=== PATIENT | female | born 1935 | race Caucasian/White ===

== ENCOUNTER 2019-11-07 21:47 | Observation (INO) | payer OTHER ==
[2019-11-07 23:12] LABS: Absolute Lymphocytes (CBC) 0.6 K/uL (0.7-4.9); Basophils % 0.4 % (0-1.3); Hematocrit 28.3 % (36.0-45.0); Lymphocytes % 3.4 % (15.3-44.8); MPV 7.4 fL (7.6-11.3); Protime INR 1.91; RBC Red Blood Cell Count 3.53 M/uL (3.86-4.86)
[2019-11-07 23:23] LABS: ALT/SGPT 18 U/L (12-78); AST/SGOT 23 U/L (15-37); Albumin 2.8 g/dL (3.4-5.0); Alkaline Phosphatase 104 U/L (45-117); BUN Blood Urea Nitrogen 13 mg/dL (7-18); Bicarbonate 30 mmol/L (21-32); Bilirubin Direct < 0.1 mg/dL (0-0.2); Bilirubin Total 0.2 mg/dL (0.2-1.0); Glucose Level 121 mg/dL (74-106); Magnesium 1.9 mg/dL (1.8-2.4); NT PRO-BNP 2182 pg/mL (<450); Potassium 3.9 mmol/L (3.5-5.1); Sodium Level 137 mmol/L (136-145); Troponin (Emerg Dept Use Only) < 0.02 ng/mL (0.0-0.045)
[2019-11-07 23:47] LABS: Urine Blood 1+ (NEG); Urine Glucose NEGATIVE (NEG); Urine Protein NEGATIVE (NEG)
[2019-11-07 23:55] LABS: Blood Morphology Comment NOT SEEN (NOT SEEN); Platelet Estimate ADEQ
[2019-11-07 23:56] LABS: Urine Bacteria <20 /HPF (<20); Urine Culture Reflex Order NOT NEEDED
[2019-11-08] MEDS ORDERED: MORPHINE 2 MG/ML SYR IV PRN (00:22)
[2019-11-08] MEDS ORDERED: ONDANSETRON 4 MG/2 ML VIAL IV PRN (00:22)
[2019-11-08] MEDS ORDERED: LORAZEPAM 0.5 MG TABLET PO PRN (00:27)
[2019-11-08] MEDS ORDERED: MAGNESIUM SULFATE 1 gm IVPB 1 GM/100 ML BAG IV ONE (00:27)
[2019-11-08] MEDS ORDERED: Oxycodone HCl/Acetaminophen 1 TAB TAB PO PRN (00:27)
[2019-11-08] MEDS ORDERED: GUAIFENESIN/DM 5 ML UCUP PO PRN (00:27)
[2019-11-08] MEDS ORDERED: HYDRALAZINE HCL 20 MG/ML VIAL IV PRN (00:27)
[2019-11-08] MEDS ORDERED: D50W 25 GM/50 ML SYRINGE/VIAL IV PRN (00:28)
[2019-11-08] MEDS ORDERED: GLUCAGON 1 MG/VIAL IM PRN (00:28)
--- NOTE | 2019-11-08 00:29 | EDPHYS ---
Physician Documentation [facility] Name: Moon Bazzi Age: 84 yrs Sex: Female : 1935 Arrival Date: 11/07/2019 Time: 21:50 Bed 13 Private MD: ED Physician Omer Mcmanus HPI: 11/06 21:57 This 84 yrs old Female presents to ER via Wheelchair with complaints of Pain jmm With Urination, Slurred Speech. 21:57 The patient's problem is reported as altered mental status, dysphasia, slurred speech. jmm Onset: The symptoms/episode began/occurred acutely, 1.5 hour(s) ago. Duration: This was a single incident. Context: This is an 84 year old female with a history of pulmonary fibrosis that presents to the ED with complaints of increased urinary frequency with productive cough over the past 4 days. Patient was prescribed levaquin and prednisone and took one dose today. Daughter states the patient developed slurred speech 1.5 hours ago. Denies focal weakness. . Historical: - PMHx: 22:02 pulmonary fibrosis; Anxiety; Depression; ll1 - Immunization history:: Adult Immunizations unknown. - Social history:: Patient/guardian denies using street drugs, Smoking status: unknown. ROS: 21:57 Constitutional: Negative for fever, chills, and weight loss, Cardiovascular: Negative jmm for chest pain, palpitations, and edema. 21:57 Abdomen/GI: Negative for abdominal pain, nausea, vomiting, diarrhea, and constipation, Back: Negative for injury and pain. 21:57 Respiratory: Positive for cough. 21:57 : Positive for urinary frequency. 21:57 Neuro: Positive for speech changes. 21:57 All other systems are negative. Exam: 21:57 Radiologist reports: normal jmm 21:57 Constitutional: This is a well developed, well nourished patient who is awake, alert, and in no acute distress. Head/Face: atraumatic. Eyes: EOMI, no conjunctival erythema appreciated ENT: Moist Mucus Membranes Neck: Trachea midline, Supple Chest/axilla: Normal chest wall appearance and motion. 21:57 Cardiovascular: Rate: normal, Rhythm: regular. 21:57 Respiratory: the patient does not display signs of respiratory distress, Respirations: normal, Breath sounds: are clear throughout. 21:57 Abdomen/GI: Inspection: abdomen appears normal, Bowel sounds: normal, Palpation: abdomen is soft and non-tender, in all quadrants. 21:57 Back: pain, is absent. 21:57 Musculoskeletal/extremity: ROM: intact in all extremities. 21:57 Skin: Appearance: Color: 21:57 Neuro: Orientation: is normal, Mentation: is normal, Memory: is normal, Cerebellar function: normal finger to nose testing, Motor: is normal, Sensation: is normal, no obvious gross deficits. 21:57 Psych: Behavior/mood is pleasant, cooperative, anxious. Vital Signs: 22:33 BP 155 / 81; Pulse 107; Resp 30; Temp 97.7; Pulse Ox 96% on 2 lpm NC; ll1 0403 00:00 BP 145 / 79; Pulse 99; Resp 20; Pulse Ox 98% on 2 lpm NC; ao 01:00 BP 130 / 80; Pulse 105; Resp 20; Pulse Ox 98% on 2 lpm NC; ao NIH Stroke Scale Scores: 11/06 22:15 NIHSS Score: 1 ao MDM: 21:57 Patient medically screened. bao 04 00:26 Data reviewed: vital signs, nurses notes. Counseling: I had a detailed discussion with [facility] the patient and/or guardian regarding: the historical points, exam findings, and any diagnostic results supporting the discharge/admit diagnosis, lab results, radiology results, the need for further work-up and treatment in the hospital. ED course: I discussed the patient with Dr. Staton whom accepted admission. . 02:16 ED course: TPA not given due to contraindication of eliquis. [facility] 11/06 22:00 Order name: Basic Metabolic Panel; Complete Time: 23:32 [facility] 11/06 22:00 Order name: CBC with Diff; Complete Time: 00:11 [facility] 11/06 22:00 Order name: LFT's; Complete Time: 23:32 [facility] 11/06 22:00 Order name: Magnesium; Complete Time: 23:32 [facility] 11/06 22:00 Order name: NT PRO-BNP; Complete Time: 23:32 [facility] 11/06 22:00 Order name: PT-INR; Complete Time: 23:32 [facility] 11/06 22:00 Order name: Troponin (emerg Dept Use Only); Complete Time: 23:32 [facility] 11/06 22:22 Order name: Procalcitonin; Complete Time: 23:51 [facility] 11/06 22:22 Order name: Lactate; Complete Time: 23:32 [facility] 11/06 22:30 Order name: Glucose, Ancillary Testing; Complete Time: 22:38 [facility] 11/06 23:14 Order name: Urine Dipstick--Ancillary (enter results); Complete Time: 23:49 [facility] 11/06 23:22 Order name: Manual Differential; Complete Time: 00:11 [facility] 11/06 23:35 Order name: Urine Microscopic Only; Complete Time: 00:11 [facility] 11/07 00:17 Order name: Blood Culture Adult (2) [facility] 11/06 22:00 Order name: XRAY Chest (1 view) [facility] 11/06 22:00 Order name: CT Stroke Brain w/o Contrast [facility] 11/07 00:31 Order name: Magnesium; Complete Time: 01:58 [facility] 11/07 00:31 Order name: Comprehensive Metabolic Panel [facility] 11/07 00:31 Order name: Comprehensive Metabolic Panel [facility] 11/07 00:31 Order name: Troponin I [facility] 11/07 00:31 Order name: Troponin I [facility] 11/07 00:31 Order name: Troponin I [facility] 11/07 00:31 Order name: Troponin I [facility] 11/07 00:31 Order name: Sputum Gram Stain [facility] 11/07 00:31 Order name: Sputum Culture [facility] 11/07 00:34 Order name: CBC with Automated Diff [facility] 11/07 00:34 Order name: CBC with Automated Diff [facility] 11/07 00:35 Order name: D-Dimer; Complete Time: 07:39 [facility] 11/07 00:45 Order name: Thorax Wo Con [facility] 11/06 22:00 Order name: EKG; Complete Time: 22:02 [facility] 11/06 22:00 Order name: Cardiac monitoring; Complete Time: 23:05 [facility] 11/06 22:00 Order name: EKG - Nurse/Tech; Complete Time: 23:05 [facility] 11/06 22:00 Order name: IV Saline Lock; Complete Time: 23:05 [facility] 11/06 22:00 Order name: Labs collected and sent; Complete Time: 23:05 [facility] 11/06 22:00 Order name: O2 Per Protocol; Complete Time: 23:05 [facility] 11/06 22:00 Order name: O2 Sat Monitoring; Complete Time: 23:05 [facility] 11/06 22:00 Order name: Urine Dipstick-Ancillary (obtain specimen); Complete Time: 23:13 [facility] 11/07 00:34 Order name: CONS Pharmacy Consult [facility] 11/07 00:34 Order name: CONS Physician Consult [facility] 11/07 00:34 Order name: Physical Therapy Consult [facility] 11/07 02:16 Order name: CT Chest For PE Angio [facility] Administered Medications: No medications were administered Disposition: 07:41 Co-signature as Attending Physician, Omer TABARES I agree with the assessment and bao plan of care. Disposition: 11/08/19 00:28 Hospitalization ordered by Sukhjinder Staton for Observation. Preliminary diagnosis are Dysuria, Slurred speech, Leukocytosis, Pulmonary Fibrosis. - Bed requested for Telemetry/MedSurg (observation). - Status is Observation. ao - Condition is Stable. - Problem is new. - Symptoms have improved. NIH Stroke Scale - NIH Stroke Score Date: 11/07/2019 Time: 22:15 Total Score = 1 1a. Level of Consciousness (LOC) - 0(Alert) 1b. Level of Consciousness (LOC) (Year \T\ Age) - 0(Both) 1c. LOC Commands (Open \T\ Closes Eyes/Construction Skills Teacher) - 0(Both) 2. Best Gaze (Lateral Gaze Paresis) - 0(Normal) 3. Visual Field Loss - 0(No visual loss) 4. Facial Palsy - 1(Minor Paralysis) 5a. Left Arm: Motor (10-second hold) - 0(No drift) 5b. Right Arm: Motor (10-second hold) - 0(No drift) 6a. Left Leg: Motor (5-second hold - always test supine) - 0(No drift) 6b. Right Leg: Motor (5-second hold - always test supine) - 0(No drift) 7. Limb Ataxia (finger/nose \T\ heel/knapp - test with eyes open) - 0(Absent) 8. Sensory Loss (pinprick arms/legs/face) - 0(Normal) 9. Best Language: Aphasia (description/naming/reading) - 0(No aphasia) 10. Dysarthria (speech clarity - read or repeat words) - 0(Normal) 11. Extinction and Inattention (visual/tactile/auditory/spatial/personal) - 0(No abnormality) Initials: ao Signatures: Dispatcher [employer] EDMT Omer Mcmanus MD MD cha Mickail, Joel, PA PA jmm Garcia, Cindy, RN RN Golden Rodriguez, RN RN Rosa Elena Woodward RN RN ll1 Corrections: (The following items were deleted from the chart) 00:45 00:34 CT-CHEST WITHOUT CONTRAST ordered. EDMT EDMT 00:59 00:28 Hospitalization Ordered by Sukhjinder Staton MD for Observation. Preliminary cg diagnosis is Dysuria; Slurred speech; Leukocytosis; Pulmonary Fibrosis. Bed requested for Telemetry/MedSurg (observation). Status is Observation. Condition is Stable. Problem is new. Symptoms have improved. [facility] 01:13 00:59 11/08/2019 00:28 Hospitalization Ordered by Sukhjinder Staton MD for cg Observation. Preliminary diagnosis is Dysuria; Slurred speech; Leukocytosis; Pulmonary Fibrosis. Bed requested for Telemetry/MedSurg (observation). Status is Observation. Condition is Stable. Problem is new. Symptoms have improved. 01:28 01:13 11/08/2019 00:28 Hospitalization Ordered by Sukhjinder Staton MD for cg Observation. Preliminary diagnosis is Dysuria; Slurred speech; Leukocytosis; Pulmonary Fibrosis. Bed requested for Telemetry/MedSurg (observation). Status is Observation. Condition is Stable. Problem is new. Symptoms have improved. 03:18 01:28 11/08/2019 00:28 Hospitalization Ordered by Sukhjinder Staton MD for ao Observation. Preliminary diagnosis is Dysuria; Slurred speech; Leukocytosis; Pulmonary Fibrosis. Bed requested for Telemetry/MedSurg (observation). Status is Observation. Condition is Stable. Problem is new. Symptoms have improved.
--- NOTE | 2019-11-08 00:29 | ER ---
Nurse's Notes [facility] Name: Moon Bazzi Age: 84 yrs Sex: Female : 1935 Arrival Date: 11/07/2019 Time: 21:50 Bed 13 Private MD: Diagnosis: Dysuria;Slurred speech;Leukocytosis;Pulmonary Fibrosis Presentation: 11/06 22:00 Chief complaint: Patient's son or daughter states: Slurring words per daughter for 1.5 ll1 hours. Started on Levaquin for UTI today. + productive cough for 3 days. Coronavirus screen: Surgical mask placed on patient. Patient moved to private room, placed in contact and droplet isolation with eye protection until further assessment. Patient reports a cough. Patient denies shortness of breath or difficulty breathing. Patient denies measured and/or subjective temperature greater than 100.4F. Patient denies travel on a cruise ship or to a country the [facility] currently lists as an affected area. Patient denies contact with known and/or suspected case of COVID-19. Ebola Screen: Patient denies travel to an Ebola-affected area in the 21 days before illness onset. Risk Assessment: Do you want to hurt yourself or someone else? Patient reports no desire to harm self or others. 22:00 Method Of Arrival: Wheelchair ll1 22:00 Acuity: PEDRITO 2 ll1 23:10 Initial Sepsis Screen: Does the patient meet any 2 criteria? RR > 20 per min. Does the ao patient have a suspected source of infection? No. Patient's initial sepsis screen is negative. 23:10 Onset of symptoms is unknown. ao Historical: - PMHx: 22:02 pulmonary fibrosis; Anxiety; Depression; ll1 - Immunization history:: Adult Immunizations unknown. - Social history:: Patient/guardian denies using street drugs, Smoking status: unknown. Screenin:10 The patient exhibits slurred or garbled speech. Provider notified of indication for ao Speech Therapy consult. The patient failed the bedside swallow screening. The patient will be kept NPO until cleared by Speech Therapy or Physician. 22:15 VAN Screening: Arm Drift: Patient shows no arm weakness. Visual Disturbance: No visual ao disturbance noted. Aphasia: No aphasia noted. Neglect: No neglect noted. 22:20 Abuse screen: Denies threats or abuse. Denies injuries from another. Nutritional ao screening: No deficits noted. Tuberculosis screening: No symptoms or risk factors identified. Fall Risk None identified. Assessment: 22:20 General: Appears uncomfortable, Behavior is calm, cooperative, appropriate for age. ao Pain: Complains of pain in right leg and left leg. 22:20 Neuro: Level of Consciousness is awake, alert, obeys commands, Oriented to person, ao place, Weakness Speech Reported Slurry. Cardiovascular: Capillary refill < 3 seconds Patient's skin is warm and dry. Respiratory: Airway is patent Respiratory effort is even, unlabored, Respiratory pattern is regular, symmetrical. GI: Abdomen is non-distended. : Reports burning with urination, since 2 Weeks urgency, urinary frequency. EENT: No signs and/or symptoms were reported regarding the EENT system. Derm: Skin is intact, Skin is pink, warm \T\ dry. normal, Skin temperature is warm. Musculoskeletal: Circulation, motion, and sensation intact. Range of motion: limited in all extremities. 23:20 Reassessment: Patient appears in no apparent distress at this time. Patient and/or ao family updated on plan of care and expected duration. Pain level reassessed. 11/07 00:20 Reassessment: Patient appears in no apparent distress at this time. Patient and/or ao family updated on plan of care and expected duration. Pain level reassessed. 01:12 Reassessment: helped pt to the bedside commode. Stayed in the room and helped her back jv1 to the bed. provider arrived in the room. 02:30 Reassessment: Patient appears in no apparent distress at this time. Patient and/or ao family updated on plan of care and expected duration. Pain level reassessed. Called Dr Moran to confirm that Dr want to screen patient for COVID-19. Patient will be screen for COVID-[address] request. 03:00 Reassessment: Patient appears in no apparent distress at this time. Patient was taken ao to hospital room 415. Report given to primary nurse. 08:26 Reassessment: Received PUI# from health dept ([id number]), reported to lab. iw Vital Signs: 11/06 22:33 BP 155 / 81; Pulse 107; Resp 30; Temp 97.7; Pulse Ox 96% on 2 lpm NC; ll1 11/07 00:00 BP 145 / 79; Pulse 99; Resp 20; Pulse Ox 98% on 2 lpm NC; ao 01:00 BP 130 / 80; Pulse 105; Resp 20; Pulse Ox 98% on 2 lpm NC; ao NIH Stroke Scale Scores: 11/06 22:15 NIHSS Score: 1 ao ED Course: 21:50 Patient arrived in ED. cl3 21:50 Tyler Palma PA is PHCP. jmm 21:50 Omer Mcmanus MD is Attending Physician. jmm 21:54 Golden Rodriguez RN is Primary Nurse. ao 22:01 Triage completed. ll1 22:02 Arm band placed on Patient placed in an exam room. ll1 22:16 CT Stroke Brain w/o Contrast In Process Unspecified. EDMS 22:25 Inserted saline lock: 20 gauge in right antecubital area, using aseptic technique. ao Blood collected. 22:33 EKG done, by ED staff. jv1 22:50 XRAY Chest (1 view) In Process Unspecified. EDMS 23:09 Patient has correct armband on for positive identification. campus monitor on. Pulse ao ox on. NIBP on. 23:56 Assisted to bedside commode. jp3 11/07 00:27 Sukhjinder Staton MD is Hospitalizing Provider. jmm 02:13 Notified Nurse Practitioner and/or Physician Appellate Court Judge of a critical lab result(s), bb D-Dimer [id number] Tyler CAMERON notified. 02:24 accucheck obtained, result was 122. jv1 03:16 No provider procedures requiring assistance completed. Patient admitted, IV remains in ao place. Administered Medications: No medications were administered Outcome: 00:28 Decision to Hospitalize by Provider. jm 03:17 Admitted to Tele accompanied by nurse, room 415, on monitor, with chart, Report called ao to Primary nurse 03:17 Condition: stable 03:17 Instructed on the need for admit. 03:18 Patient left the ED. ao NIH Stroke Scale - NIH Stroke Score Date: 11/07/2019 Time: 22:15 Total Score = 1 1a. Level of Consciousness (LOC) - 0(Alert) 1b. Level of Consciousness (LOC) (Year \T\ Age) - 0(Both) 1c. LOC Commands (Open \T\ Closes Eyes/Data Entry Coordinator) - 0(Both) 2. Best Gaze (Lateral Gaze Paresis) - 0(Normal) 3. Visual Field Loss - 0(No visual loss) 4. Facial Palsy - 1(Minor Paralysis) 5a. Left Arm: Motor (10-second hold) - 0(No drift) 5b. Right Arm: Motor (10-second hold) - 0(No drift) 6a. Left Leg: Motor (5-second hold - always test supine) - 0(No drift) 6b. Right Leg: Motor (5-second hold - always test supine) - 0(No drift) 7. Limb Ataxia (finger/nose \T\ heel/knapp - test with eyes open) - 0(Absent) 8. Sensory Loss (pinprick arms/legs/face) - 0(Normal) 9. Best Language: Aphasia (description/naming/reading) - 0(No aphasia) 10. Dysarthria (speech clarity - read or repeat words) - 0(Normal) 11. Extinction and Inattention (visual/tactile/auditory/spatial/personal) - 0(No abnormality) Initials: ao Signatures: Dispatcher [employer] EDMS Tyler Palma PA PA jmm Ballard, Brenda, RN RN Lyly Bledsoe, SHEYLA CARRION iw Golden Rodriguez RN RN ao Huy Herrera jp3 Valentine Callahan RN RN Josee Laughlin cl3 Rosa Elena Martinez, SHEYLA RN ll1 Corrections: (The following items were deleted from the chart) 03:51 11/06 23:11 VAN Screening: Arm Drift: Patient shows no arm weakness. Visual ao Disturbance: No visual disturbance noted. Aphasia: No aphasia noted. Neglect: No neglect noted. ao 11/07 03:51 11/06 23:11 The patient exhibits slurred or garbled speech. Provider notified ao of indication for Speech Therapy consult. ao
[2019-11-08] MEDS ORDERED: FUROSEMIDE 40 MG/4 ML VIAL IV ONE (00:30)
--- NOTE | 2019-11-08 01:46 | P.HP ---
Certification for Inpatient With expected LOS: >2 Midnights Patient will require the following post-hospital care: Home Health Services Practitioner: I am a practitioner with admitting privileges, knowledge of patient current condition, hospital course, and medical plan of care. Services: Services provided to patient in accordance with Admission requirements found in Title 42 Section 412.3 of the Code of Federal Regulations Patient History Date of Service: 11/08/19 Reason for admission: Increasing cough, slurred speech History of Present Illness: 84 yr old female with past medical history of hypertension, hypothyroidism, pulmonary fibrosis , follows with Pulmonary team at [facility], on chronic home O2 at 2 L, history of a fatty on chronic anticoagulation with Eliquis, status post AICD, recently started on digoxin for persistent tachycardia 1 month ago by a financial aid administrator at the [facility]; recently residing with the daughter in this area since the last 2 months presented because worsening cough since the last 4 days, whitish productive sputum which is changed from baseline chronic cough, no recent cough contact or fever. No associated hemoptysis. Patient also have been increasing jitteriness , restlessness, and new onset confusion 1 anahy prior to presentation with daughter noticing patient have difficulty in expressing weighs for a few min. Patient has also expresses clear admitted to be confused at the same time. Daughter states she was started on prednisone and Cipro to the because of worsening cough as well as increase the urine frequency. She only received 1 dose of both medications prior to developing the change in mental status and presenting in the ER. Patient denies dysuria, hematuria or flank pain. CC fees restless and anxious now. She has recently had Olazanpine added to her depression medication 2 weeks ago Allergies No Known Allergies Allergy (Unverified 11/08/19 01:38) Home medications list reviewed: Yes - Past Medical/Surgical History Has patient received pneumonia vaccine in the past: No -: Pulmonary fibrosis -: Hypertension -: Hypothyroid -: Chronic O2 use -: Atrial fibrillation -: Chronic anti coagulated -: Status post AICD placed -: Status post AICD placement - Family History Family History: Reviewed- Non-Contributory - Social History Smoking Status: Never smoker Alcohol use: No CD- Drugs: No Caffeine use: No Review of Systems General: Weakness Eyes: Unremarkable ENT: Unremarkable Respiratory: Cough, Shortness of Breath, Sputum Cardiovascular: Unremarkable Gastrointestinal: Unremarkable Genitourinary: Frequency, Urgency Musculoskeletal: Unremarkable Integumentary: Unremarkable Neurological: Incoordination, Change in Speech Physical Examination - Vital Signs Temperature: 98 F Blood Pressure: 132/50 Pulse: 83 Respirations: 26 Pulse Ox (%): 96 - Physical Exam General: Alert, In no apparent distress, Oriented x3, Cooperative, Other (thin , elderly female on nasal cannula O2) HEENT: Atraumatic, Normocephalic, PERRLA Neck: 2+ carotid pulse no bruit, JVD not distended Respiratory: Diminished, Crackles/rales, Rhonchi/gurgles Cardiovascular: No edema, Regular rate/rhythm, Normal S1 S2 Capillary refill: <2 Seconds Gastrointestinal: Normal bowel sounds, Soft and benign, Non-distended, No ascites, No tenderness Musculoskeletal: No clubbing, No swelling Integumentary: No rashes, No breakdown Neurological: Normal speech, Normal strength at 5/5 x4 extr, Other (Marked tremors) - Studies Laboratory Data (last 24 hrs) 11/07/19 22:25: PT 22.2 H, INR 1.91 11/07/19 22:25: WBC 17.7 H, Hgb 9.0 L, Hct 28.3 L, Plt Count 622 H 11/07/19 22:25: Sodium 137, Potassium 3.9, BUN 13, Creatinine 0.74, Glucose 121 H, Magnesium 1.9, Total Bilirubin 0.2, AST 23, ALT 18, Alkaline Phosphatase 104 Imagings Data: Chest [id number] bilateral patchy opacities Head CT shows no acute intracranial abnormality Assessment and Plan - Problems (Diagnosis) (1) Opacities of both lungs present on chest x-ray Current Visit: Yes Status: Acute (2) Pulmonary fibrosis Current Visit: Yes Status: Acute (3) Diastolic CHF, acute on chronic Current Visit: Yes Status: Acute (4) Suspected COVID-19 virus infection Current Visit: Yes Status: Acute (5) Atrial fibrillation Current Visit: Yes Status: Acute - Advance Directives Does patient have a Living Will: No Does patient have a Durable POA for Healthcare: No Physician Review: Patient Assessed, Agree with Above Assessment and Plan Physician Review Additional Text: 1 bilateral lung opacities-possibly due to underlying the pulmonary fibrosis but unable to rule out acute pneumonia -will obtain CT without contrast of the lungs -we start patient on empirical antibiotics with Rocephin and Zithromax. -will obtain sputum for culture and sensitivity. -we also obtain Covid 19 testing -continue recently started steroids 2 history of pulmonary fibrosis-continue duo nebs and Pirfenidone Continue on nasal cannula O2 3 urine frequency-negative UA, may be due to transient acute confusion 4 DVT prophylaxis - continue Eliquis 5 atrial fibrillation r-continue Eliquis 6 Transient acute confusion/history of depression-continue olanzapine, and duo Ativan p.r.n. -may be due to recent steroid use 7 advanced directives-patient would like trial of full code Time Spent Managing Pts Care (In Minutes): 65
[2019-11-08] MEDS ORDERED: CEFTRIAXONE/SWI 1gm 1 GM/10 ML SYR IV SCH (02:00)
[2019-11-08] MEDS ORDERED: ALBUTEROL INHALER 60 PUFF/8 GM IH PRN (03:12)
[2019-11-08 03:55] VITALS: BP 145/70
[2019-11-08] MEDS ORDERED: ALBUTEROL 2.5 MG/3 ML NEB SOL NEB SCH (04:00)
[2019-11-08 04:47] VITALS: TEMP 98.8
[2019-11-08] MEDS: METHYLPREDNISOLONE 125 MG INJ IV SCH ×2 (05:15→11:38)
[2019-11-08 06:41] VITALS: BMI 3276.0
[2019-11-08] MEDS ORDERED: INSULIN -REGULAR HUMAN 50 UNIT/0.5 ML ML SQ SCH (07:30)
[2019-11-08] MEDS ORDERED: HEPARIN 5000 UNIT/ML 1 ML VIAL SQ SCH (09:00)
[2019-11-08] MEDS ORDERED: FAMOTIDINE 20 MG TAB PO SCH (09:00)
[2019-11-08] MEDS ORDERED: GUAIFENESIN 600 MG SA TAB PO SCH (09:00)
[2019-11-08] MEDS ORDERED: AZITHROMYCIN 250 MG TAB PO SCH (09:00)
--- NOTE | 2019-11-08 09:18 | RAD REPORT ---
EXAM DESCRIPTION: Madonna Single View11/07/2019 10:50 pm CLINICAL HISTORY: Shortness of breath COMPARISON: none FINDINGS: Extensive bilateral pulmonary opacities. Heart is mildly enlarged. Pacemaker leads in place IMPRESSION: Extensive bilateral opacities. Most of this likely represents pulmonary fibrosis. There may be a superimposed mild pneumonitis or pulmonary edema
--- NOTE | 2019-11-08 10:24 | RAD REPORT ---
EXAM DESCRIPTION: CT - Chest For Pe Angio - 11/08/2019 3:14 am CLINICAL HISTORY: SOB COMPARISON: None. TECHNIQUE: CT CHEST ANGIOGRAPHY WITH IV CONTRAST on 11/08/2019 2:16 AM CDT. MIPS reconstructions were generated. This exam was performed according to our departmental dose-optimization program, which includes autom ated exposure control, adjustment of the mA and/or kV according to patient size and/or use of iterati ve reconstruction technique. MIP images were generated. FINDINGS: Thoracic aorta is normal in course and caliber without aneurysm or dissection. Pulmonary a rteries are adequately opacified without acute or chronic filling defects. The heart is mildly enlarged. Left biventricular pacemaker is present. There is no pericardial effusi on. There are multiple enlarged mediastinal and bilateral hilar lymph nodes measuring up to 2.4 cm. T here are extensive subpleural reticulations throughout both lungs which Vicarious of normal interveni ng lung. There is bilateral mild bronchiectasis. There is bibasilar minimal honeycombing. There is no pleural effusion, pleural thickening or pneumothorax. Central airways are patent. Lungs a re clear with no consolidation, mass or interstitial lung disease. There is a small hiatal hernia. There are no acute osseous findings. No suspicious bony lesions. IMPRESSION: Cardiomegaly with no aortic dissection or aneurysm. No pulmonary embolus. 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 No definite pneumonia. Electronically signed by: Kody Bustamante MD 11/08/2019 3:24 AM CDT Due to temporary technical issues with the PACS/Fluency reporting system, reports are being signed by the in house radiologist as a courtesy to ensure prompt reporting. The interpreting radiologist is f ully responsible for the content of the report.
--- NOTE | 2019-11-08 10:30 | RAD REPORT ---
EXAM DESCRIPTION: CT - Thorax Wo Con - 11/08/2019 3:13 am CLINICAL HISTORY: B/l infiltrate COMPARISON: None Available. TECHNIQUE: Axial CT images of the chest without IV contrast obtained from the thoracic inlet through the diaphragm. Coronal and sagittal reformatted images available. FINDINGS: Chest: Thyroid: No abnormalities of the visualized thyroid. Great Vessels: Great vessels have normal anatomic configuration. Thoracic Aorta: Atherosclerotic calcification of the thoracic aorta. Pulmonary arteries: The main pulmonary artery is not dilated. Heart: Coronary artery atherosclerosis. Cardiomegaly. No significant pericardial effusion. Left-sided multilead pacemaker. Lymph Nodes: Scattered enlarged mediastinal and hilar lymph nodes. Esophagus: Moderate hiatal hernia. Other: No additional findings. Lungs: Diffuse bilateral fibrotic changes with honeycombing, most severe in the lung bases. Mild bron chial wall thickening and likely traction bronchiectasis related to fibrosis. Confluent mild groundgl ass opacities bilaterally. No confluent airspace consolidation. Pleura: No pleural effusion or pneumothorax. Trachea/Airways: No acute abnormalities of the trachea. Bones: Multilevel degenerative endplate spondylosis. Upper Abdomen: Limited images of the upper abdomen demonstrate no definite abnormalities of visualize d portions of the liver, gallbladder, pancreas, spleen, adrenal glands, or kidneys. IMPRESSION: 1. Findings compatible with chronic interstitial lung disease/pulmonary fibrosis. This could represen t sequela DIP or fibrosis related to other underlying systemic etiology. 2. Mild bilateral confluent groundglass opacities may be a component of underlying chronic lung disea se however, without comparison, superimposed acute infectious process could contribute to this appear ance. No confluent airspace consolidation. 3. Cardiomegaly with coronary artery atherosclerosis. This exam was performed according to our departmental dose-optimization program, which includes autom ated exposure control, adjustment of the mA and/or kV according to patient size and/or use of iterati ve reconstruction technique. Electronically signed by: Tani Koehler 11/08/2019 3:47 AM CDT Due to temporary technical issues with the PACS/Fluency reporting system, reports are being signed by the in house radiologist as a courtesy to ensure prompt reporting. The interpreting radiologist is f ully responsible for the content of the report.
--- NOTE | 2019-11-08 10:56 | P.DS ---
Admission Date: 11/08/19 Discharge Date: 11/08/19 Primary Care Provider: Jose Enrique Sanchez; Cardiology-Dr. Mckeon; Pulm-Dr. Alcazar Disposition: ROUTINE DISCHARGE Discharge Condition: GOOD Reason for Admission: Increasing cough, slurred speech Consultations: Pulmonary-Dr. More Procedures: CT Brain: Chronic microvascular changes. No acute finding noted. CT Chest: FINDINGS: Thoracic aorta is normal in course and caliber without aneurysm or dissection. Pulmonary arteries are adequately opacified without acute or chronic filling defects. The heart is mildly enlarged. Left biventricular pacemaker is present. There is no pericardial effusion. There are multiple enlarged mediastinal and bilateral hilar lymph nodes measuring up to 2.4 cm. There are extensive subpleural reticulations throughout both lungs which Vicarious of normal intervening lung. There is bilateral mild bronchiectasis. There is bibasilar minimal honeycombing. There is no pleural effusion, pleural thickening or pneumothorax. Central airways are patent. Lungs are clear with no consolidation, mass or interstitial lung disease. There is a small hiatal hernia. There are no acute osseous findings. No suspicious bony lesions. IMPRESSION: Cardiomegaly with no aortic dissection or aneurysm. No pulmonary embolus. 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 No definite pneumonia Medical Problem List: Cough, shortness of breath secondary to likely acute on chronic diastolic CHF complicated with chronic pulmonary fibrosis Altered mental status with underlying dementia likely related to medication Atrial fibrillation on chronic anti coagulation therapy Depression with anxiety Hyperlipidemia Hypertension Anemia of chronic disease Hypothyroidism GERD Dementia Brief History of Present Illness: 84-year-old female with multiple medical problems including atrial fibrillation on chronic anti coagulation therapy, hypertension, hyperlipidemia, CHF and chronic pulmonary fibrosis. She is on chronic oxygen. Patient presented with cough, congestion and mild shortness of breath over the last several days. Daughter reported that she has been gaining weight. Daughter also reports she was recently seen by her carpentry teacher. Daughter had called PCP. PCP had started patient on Levaquin, prednisone and given Zyprexa for agitation. Patient evaluated in the emergency room. CT scan revealed chronic pulmonary fibrosis. No definitive pneumonia noted. UA unremarkable. Patient was admitted for further evaluation. Hospital Course: Patient presented with cough, shortness of breath. Patient with underlying history of chronic pulmonary fibrosis, atrial fibrillation on chronic anti coagulation therapy, hypertension and hyperlipidemia. Patient also had some altered mental status. Daughter reports patient has been gaining some weight. Daughter reports PCP recently started Levaquin, prednisone, and Zyprexa. Levaquin and prednisone was for suspected upper respiratory infection and her pulmonary fibrosis. Zyprexa was added for agitation. Patient with underlying depression with anxiety. After taking medication she was agitated with some altered mental status. Patient with suspected underlying vascular dementia. Patient was admitted for further evaluation. Patient seen by pulmonology. CT scan showed no evidence of pneumonia. Chronic pulmonary fibrosis noted. Urinalysis unremarkable. Due to her risk factors patient was evaluated for COVID-19. Viral cultures will return likely tomorrow. Doubt COVID-19. Suspect shortness of breath and cough related to acute on chronic diastolic CHF. At discharge will recommend to continue to monitor her weight daily. Recommend to maintain fluid restriction to 1500 cc per day with salt restriction. Patient may require Lasix 20 mg daily if with increase weight and edema to the lower extremities. Lasix will be provided at discharge. Recommend to follow up with cardiology in 1-2 weeks to follow up this hospitalization. Daughter reports recent cardiology evaluation showed normal ejection fraction. For her pulmonary fibrosis. This appears stable. Patient takes Esbriet 801 mg 3 times a day and Advair 1 puff twice daily for pulmonary fibrosis. Patient recently given antibiotic and steroid for upper respiratory infection. At discharge patient may continue with Levaquin and prednisone. For her prednisone , she may continue with 10 mg daily for at least 5 days. Patient will continue with home oxygen which she has to maintain sats above 93%. Patient will continue with her chronic medication for pulmonary fibrosis. Recommend follow up with pulmonology in 1-2 weeks to follow up this hospitalization. For altered mental status this was likely related to medication-Zyprexa. Patient likely with underlying vascular dementia as CT head showed chronic microvascular changes. Will recommend to discontinue Zyprexa at discharge. For her evaluation for COVID-19, she will need to be quarantined at home for at least 14 days. Results will return tomorrow. If negative quarantined can be discontinued. CDC guidelines on quarantine will be provided. Hand washing information will also be provided. Patient with atrial fibrillation with chronic anti coagulation therapy, hypertension, and hyperlipidemia. This has remained stable. Rate controlled with atrial fibrillation. At discharge she will continue with Eliquis 5 mg 1 pill twice daily, carvedilol 6.25 mg 1 pill twice daily, Zocor 80 mg daily and digoxin 0.125 mg daily. Recommend follow up with cardiology as directed. Patient with depression and anxiety. Patient likely with underlying vascular dementia. As recommended above will discontinue Zyprexa. Patient may continue with Cymbalta 30 mg daily, vitamin-B 12 daily and Lexapro 20 mg daily. Further adjustment can be done by her PCP. Patient plans to establish care in the area. This can be further addressed by new PCP. Patient with hypothyroidism. At discharge she will continue with levothyroxine 75 mcg daily. Patient with GERD. Patient may continue with Protonix 40 mg daily. Vital Signs/Physical Exam: Temp Pulse Resp BP Pulse Ox 98.8 F 106 H 20 145/70 H 100 11/08/19 03:20 11/08/19 03:54 11/08/19 03:20 11/08/19 03:54 11/08/19 03:20 General: Alert, Demented (Mild) HEENT: Atraumatic Neck: Supple Respiratory: Expiratory wheezes (Mild) Cardiovascular: Irregular heart rate/rhythm (a fib. rate controlled) Gastrointestinal: Normal bowel sounds, Soft and benign, Non-distended Musculoskeletal: No tenderness, No warmth Integumentary: No erythema, No warmth, No cyanosis Neurological: Normal speech, Normal strength at 5/5 x4 extr, Normal tone, Dementia Laboratory Data at Discharge: WBC 17.7 K/uL (4.3-10.9) H 11/07/19 22:25 Hgb 9.0 g/dL (12.0-15.0) L 11/07/19 22:25 Hct 28.3 % (36.0-45.0) L 11/07/19 22:25 Plt Count 622 K/uL (152-406) H 11/07/19 22:25 PT 22.2 SECONDS (9.5-12.5) H 11/07/19 22:25 INR 1.91 11/07/19 22:25 Sodium 137 mmol/L (136-145) 11/07/19 22:25 Potassium 3.9 mmol/L (3.5-5.1) 11/07/19 22:25 BUN 13 mg/dL (7-18) 11/07/19 22:25 Creatinine 0.74 mg/dL (0.55-1.3) 11/07/19 22:25 Glucose 121 mg/dL (74-106) H 11/07/19 22:25 Magnesium 2.0 mg/dL (1.8-2.4) 11/07/19 22:25 Total Bilirubin 0.2 mg/dL (0.2-1.0) 11/07/19 22:25 AST 23 U/L (15-37) 11/07/19 22:25 ALT 18 U/L (12-78) 11/07/19 22:25 Alkaline Phosphatase 104 U/L (45-117) 11/07/19 22:25 Home Medications: Advair 500/50 1 puff IH BID 11/08/19 Apixaban [Eliquis] 1 tab PO BID 11/08/19 Cyanocobalamin (Vitamin B-12) [Vitamin B-12] 1 tab PO DAILY 11/08/19 Digoxin [Lanoxin*] 1 tab PO DAILY 11/08/19 Duloxetine HCl 1 cap PO BID 11/08/19 Escitalopram [Lexapro*] 1 tab PO DAILY 11/08/19 Estradiol [Estrace] 1 tab PO DAILY 11/08/19 Furosemide [Lasix] 20 mg PO DAILY PRN #30 tab 11/08/19 Levothyroxine [Synthroid*] 1 tab PO DAILY 11/08/19 Pantoprazole [Protonix Tab*] 1 tab PO DAILY 11/08/19 Pirfenidone [Esbriet] 1 tab PO TID 11/08/19 Simvastatin 1 tab PO DAILY 11/08/19 carvediloL [Carvedilol] 1 tab PO BID 11/08/19 New Medications: Furosemide [Lasix] 20 mg PO DAILY PRN #30 tab PRN Reason: Shortness Of Breath Patient Discharge Instructions: 1. Recommend follow up with a PCP in the area to establish care. 2. Patient presented with cough, shortness of breath. Patient with underlying history of chronic pulmonary fibrosis, atrial fibrillation on chronic anti coagulation therapy, hypertension and hyperlipidemia. Patient also had some altered mental status. Daughter reports patient has been gaining some weight. Daughter reports PCP recently started Levaquin, prednisone, and Zyprexa. Levaquin and prednisone was for suspected upper respiratory infection and her pulmonary fibrosis. Zyprexa was added for agitation. Patient with underlying depression with anxiety. After taking medication she was agitated with some altered mental status. Patient with suspected underlying vascular dementia. Patient was admitted for further evaluation. Patient seen by pulmonology. CT scan showed no evidence of pneumonia. Chronic pulmonary fibrosis noted. Urinalysis unremarkable. Due to her risk factors patient was evaluated for COVID-19. Viral cultures will return likely tomorrow. Doubt COVID-19. Suspect shortness of breath and cough related to acute on chronic diastolic CHF. At discharge will recommend to continue to monitor her weight daily. Recommend to maintain fluid restriction to 1500 cc per day with salt restriction. Patient may require Lasix 20 mg daily if with increase weight and edema to the lower extremities. Lasix will be provided at discharge. Recommend to follow up with cardiology in 1-2 weeks to follow up this hospitalization. Daughter reports recent cardiology evaluation showed normal ejection fraction. For her pulmonary fibrosis. This appears stable. Patient takes Esbriet 801 mg 3 times a day and Advair 1 puff twice daily for pulmonary fibrosis. Patient recently given antibiotic and steroid for upper respiratory infection. At discharge patient may continue with Levaquin and prednisone. For her prednisone, she may continue with 10 mg daily for at least 5 days. Patient will continue with home oxygen which she has to maintain sats above 93%. Patient will continue with her chronic medication for pulmonary fibrosis. Recommend follow up with pulmonology in 1-2 weeks to follow up this hospitalization. For altered mental status this was likely related to medication-Zyprexa. Patient likely with underlying vascular dementia as CT head showed chronic microvascular changes. Will recommend to discontinue Zyprexa at discharge. For her evaluation for COVID-19, she will need to be quarantined at home for at least 14 days. Results will return tomorrow. If negative quarantined can be discontinued. CDC guidelines on quarantine will be provided. Hand washing information will also be provided. 3. Patient with atrial fibrillation with chronic anti coagulation therapy, hypertension, and hyperlipidemia. This has remained stable. Rate controlled with atrial fibrillation. At discharge she will continue with Eliquis 5 mg 1 pill twice daily, carvedilol 6.25 mg 1 pill twice daily, Zocor 80 mg daily and digoxin 0.125 mg daily. Recommend follow up with cardiology as directed. 4. Patient with depression and anxiety. Patient likely with underlying vascular dementia. As recommended above will discontinue Zyprexa. Patient may continue with Cymbalta 30 mg daily, vitamin-B 12 daily and Lexapro 20 mg daily. Further adjustment can be done by her PCP. Patient plans to establish care in the area. This can be further addressed by new PCP. 5. Patient with hypothyroidism. At discharge she will continue with levothyroxine 75 mcg daily. 6. Patient with GERD. Patient may continue with Protonix 40 mg daily. Diet: AHA Activity: Fall precautions Time spent managing pt's care (in minutes): 55
--- NOTE | 2019-11-08 11:18 | P.CNS ---
Date of Consult: 11/08/19 Primary Care Provider: Jose Enrique Sanchez; Cardiology-Dr. Mckeon; Pulm-Dr. Alcazar Chief Complaint: Increasing cough, slurred speech History of Present Illness: Patient is 84 years of age admitted to the hospital feeling weak she has a history of pulmonary fibrosis denies any fever chills or cough diffuse pulmonary interstitial lung disease with some ground-glass changes on both sides Allergies meperidine [From Demerol] Allergy (Verified 11/08/19 04:52) Anaphylaxis Home Medications: Advair 500/50 1 puff IH BID 11/08/19 Apixaban [Eliquis] 1 tab PO BID 11/08/19 Cyanocobalamin (Vitamin B-12) [Vitamin B-12] 1 tab PO DAILY 11/08/19 Digoxin [Lanoxin*] 1 tab PO DAILY 11/08/19 Duloxetine HCl 1 cap PO BID 11/08/19 Escitalopram [Lexapro*] 1 tab PO DAILY 11/08/19 Estradiol [Estrace] 1 tab PO DAILY 11/08/19 Furosemide [Lasix] 20 mg PO DAILY PRN #30 tab 11/08/19 Levothyroxine [Synthroid*] 1 tab PO DAILY 11/08/19 Pantoprazole [Protonix Tab*] 1 tab PO DAILY 11/08/19 Pirfenidone [Esbriet] 1 tab PO TID 11/08/19 Simvastatin 1 tab PO DAILY 11/08/19 carvediloL [Carvedilol] 1 tab PO BID 11/08/19 - Past Medical/Surgical History Diabetic: No -: Pulmonary fibrosis -: Hypertension -: Hypothyroid -: Chronic O2 use -: Atrial fibrillation -: Chronic anti coagulated -: Status post AICD placed -: Status post AICD placement -: hysterectomy -: bilateral hip replacement -: bladder sx -: ankle sx -: knee surgery - Family History Mother Medical History: Heart disease Father Medical History: Heart disease Brother Medical History: Heart disease - Social History Smoking Status: Unknown if ever smoked Alcohol use: No CD- Drugs: No Caffeine use: No Place of Residence: Home Review of Systems General: Weakness ENT: Nose Discharge Respiratory: Cough, Shortness of Breath Physical Examination Temp Pulse Resp BP Pulse Ox 98.8 F 106 H 20 145/70 H 100 11/08/19 03:20 11/08/19 03:54 11/08/19 03:20 11/08/19 03:54 11/08/19 03:20 General: Alert, In no apparent distress, Oriented x3 Respiratory: Crackles/rales (Crackles bilaterally) Cardiovascular: No edema, Regular rate/rhythm Laboratory Data (last 24 hrs) 11/07/19 22:25: Magnesium 2.0 11/07/19 22:25: PT 22.2 H, INR 1.91 11/07/19 22:25: WBC 17.7 H, Hgb 9.0 L, Hct 28.3 L, Plt Count 622 H 11/07/19 22:25: Sodium 137, Potassium 3.9, BUN 13, Creatinine 0.74, Glucose 121 H, Magnesium 1.9, Total Bilirubin 0.2, AST 23, ALT 18, Alkaline Phosphatase 104 - Problems (1) Pulmonary fibrosis Current Visit: Yes Status: Acute Plan: Patient is 84 years of age admitted with weakness has pulmonary fibrosis fairly extensive with some ground-glass changes bilaterally was started on levofloxacin and steroids patient's white count is minimally elevated there is no evidence of sepsis pro calcitonin level is negative patient is a mild microcytic Anemia has home oxygen no evidence of UTI but cultures are pending patient is already anticoagulated and follow or as an outpatient
--- NOTE | 2019-11-08 11:20 | RAD REPORT ---
EXAM DESCRIPTION: CT - Ct Stroke Brain Wo Cont - 11/08/2019 4:09 am CLINICAL HISTORY: 84 years Female SLURRED SPEECH TECHNIQUE: Contiguous axial CT images obtained through the brain without IV contrast. This CT exam was performed according to our departmental dose-optimization program, which includes on e or more of the following dose reduction techniques: automated exposure control, adjustment of the m A and/or kV according to patient size, and/or use of iterative reconstruction technique. COMPARISON: No prior exams provided for comparison. FINDINGS: There is no intracranial hemorrhage, extraaxial collection, or evidence of acute transcortical infarc tion. Scattered foci of low attenuation within the periventricular and subcortical white matter are most co mpatible with chronic microvascular disease. The ventricles and sulci are symmetric without midline s hift or mass effect. Vascular calcifications are noted. No lesion of the skull base or calvarium is identified. The parana alexi sinuses and mastoid air cells are clear. IMPRESSION: Mild chronic microvascular changes without acute intracranial finding. Electronically signed by: Lexi Alvarez MD 11/07/2019 10:25 PM CDT Due to temporary technical issues with the PACS/Fluency reporting system, reports are being signed by the in house radiologist as a courtesy to ensure prompt reporting. The interpreting radiologist is f ully responsible for the content of the report.
[2019-11-08 12:03] VITALS: O2SAT 91
--- NOTE | 2019-11-08 14:38 | EKG ---
Test Date: 2019-11-07 Test Time: 22:33:35 Store Receiving Specialist: YAYA MEASUREMENT RESULTS: Intervals: Rate: 108 [place]: QRSD: 108 QT: 358 QTc: 479 [place]: P: [place]: QRS: 0 T: 97 INTERPRETIVE STATEMENTS: Ventricular-paced rhythm Abnormal ECG No previous ECG available for comparison Electronically Signed On 11-08-19 14:36:51 CDT by Miguel Dow
== END 2019-11-08 14:50 | disposition home or self-care (01) ==
LOC: ER 21:47 → INTOOBSV 11-08 00:23 → ERHOLD 11-08 00:23 → 4TH 11-08 01:31
PROVIDERS: ADMIT Internal Medicine; ATTEND Family Medicine
DX: I11.0 Hypertensive heart disease with heart failure (principal); I50.33 Acute on chronic diastolic (congestive) heart failure; Z20.828 Contact with and (suspected) exposure to other viral communicable diseases; J84.10 Pulmonary fibrosis, unspecified; I48.91 Unspecified atrial fibrillation; R00.0 Tachycardia, unspecified; E03.9 Hypothyroidism, unspecified; D63.8 Anemia in other chronic diseases classified elsewhere; R53.1 Weakness; K21.9 Gastro-esophageal reflux disease without esophagitis; F03.90 Unspecified dementia, unspecified severity, without behavioral disturbance, psychotic disturbance, mood disturbance, and anxiety; E78.5 Hyperlipidemia, unspecified; F41.8 Other specified anxiety disorders; Z99.81 Dependence on supplemental oxygen; Z79.01 Long term (current) use of anticoagulants; Z88.6 Allergy status to analgesic agent; Z95.810 Presence of automatic (implantable) cardiac defibrillator; Z82.49 Family history of ischemic heart disease and other diseases of the circulatory system
CPT/HCPCS: 93005; 87040 ×2; 85025; 80048; 36415; 83735 ×2; 85610; 82947 ×2; 85379; 80076; 83605; 84484; 84145; 83880; 71250; 71275; 70450; 71045; 99285; U0001; Q9967; J1940; J1644; J3475; J0696; J2930 ×2; G0378 ×2; 81003; 81015

== ENCOUNTER 2019-12-07 17:43 | Observation (INO) | payer OTHER ==
[2019-12-07] MEDS ORDERED: NA CHLORIDE 0.9% 500 ML ONE (18:35)
--- NOTE | 2019-12-07 18:40 | RAD REPORT ---
EXAM DESCRIPTION: [facility] Single View12/07/2019 6:24 pm CLINICAL HISTORY: Wheezing COMPARISON: November 2019 FINDINGS: Extensive of bilateral pulmonary opacities appear minimally improved. The heart is mildly enlarged. Pacemaker leads are in place. IMPRESSION: Minimal improvement in extensive bilateral pulmonary opacities. Majority of this represe nts pulmonary fibrosis
[2019-12-07 18:54] LABS: Absolute Lymphocytes (CBC) 1.2 K/uL (0.7-4.9); Basophils % 0.1 % (0-1.3); Hematocrit 24.7 % (36.0-45.0); Lymphocytes % 6.6 % (15.3-44.8); MPV 6.9 fL (7.6-11.3); RBC Red Blood Cell Count 3.17 M/uL (3.86-4.86)
--- NOTE | 2019-12-07 18:57 | RAD REPORT ---
EXAM DESCRIPTION: CT - Head Brain Wo Cont - 12/07/2019 6:43 pm CLINICAL HISTORY: Dizziness COMPARISON: 11/07/2019 TECHNIQUE: Computed axial tomography of the head was obtained. IV contrast was not requested. All CT scans are performed using dose optimization technique as appropriate and may include automated exposure control or mA/KV adjustment according to patient size. FINDINGS: An intracranial bleed is not seen . The ventricles are normal in caliber. No extra-axial fluid collection is noted. Mild low-density areas within periventricular, deep and subcortical white matter likely represent isc hemic changes secondary to small vessel disease. Fluid within the sinuses/ mastoids is not seen. IMPRESSION: No acute intracranial abnormality is seen. If patient's symptoms persist MRI of the bra in would be recommended.
[2019-12-07 19:07] LABS: Protime INR 1.8
[2019-12-07] MEDS ORDERED: LEVALBUTEROL 1.25 MG/3 ML NEB ONE ×2 (19:07→19:43)
[2019-12-07 19:18] LABS: Urine Bacteria <20 /HPF (<20); Urine Culture Reflex Order NOT NEEDED
[2019-12-07 19:22] LABS: Albumin 2.3 g/dL (3.4-5.0); Bilirubin Direct 0.1 mg/dL (0-0.2); Bilirubin Total 0.2 mg/dL (0.2-1.0); Digoxin Level 1.4 ng/mL (0.80-2.00); Magnesium 2.3 mg/dL (1.8-2.4); Potassium 3.3 mmol/L (3.5-5.1); Protein, Total 7.5 g/dL (6.4-8.2); Troponin (Emerg Dept Use Only) 0.03 ng/mL (0.0-0.045)
[2019-12-07] MEDS ORDERED: METHYLPREDNISOLONE 125 MG INJ ONE (19:43)
[2019-12-07] MEDS ORDERED: IPRATROPIUM BROM 0.5MG/2.5ML ONE (19:43)
[2019-12-07] MEDS ORDERED: POTASSIUM 25 MEQ EFFERV TAB ONE (19:43)
--- NOTE | 2019-12-07 19:43 | EDPHYS ---
Physician Documentation [facility] Name: Moon Bazzi Age: 84 yrs Sex: Female : 1935 Arrival Date: 12/07/2019 Time: 17:49 Bed 6 Private MD: SHREYAS Physician Omer Mcmanus HPI: 12/06 17:51 This 84 yrs old Female presents to ER via Unassigned with complaints of rn dizziness. 17:51 The patient presents with dizziness, generalized weakness, lightheadedness. Onset: The rn symptoms/episode began/occurred at an unknown time. Modifying factors: The symptoms are alleviated by lying down, the symptoms are aggravated by nothing. Severity of symptoms: At their worst the symptoms were moderate in the emergency department the symptoms have improved. It is unknown whether or not the patient has had similar symptoms in the past. The patient has not recently seen a physician. Per EMS, patient's family reports several instances of patient reporting dizziness and like was going to fall, no clear syncopal episode or fall, family would help her down, no trauma. No fever. + chronic lung problems and pulmonary fibrosis but denies acute changes. Per EMS, several episodes of HR in 40s but would quickly correct. Patient has pacemaker. NO chest pain. . Historical: - Allergies: 17:45 Meperidine; rb1 - Home Meds: 17:45 Esbriet oral 801 mg oral 3 times per day [Active]; Eliquis 5 mg oral tab 1 tab 2 times rb1 per day [Active]; carvedilol 6.25 mg oral tab 1 tab 2 times per day [Active]; duloxetine 30 mg oral cpDR 1 cap 2 times per day [Active]; ipratropium bromide inhalation inhalation [Active]; fluticasone inhalation inhalation [Active]; fluticasone 50 mcg/actuation nasal spsn 2 sprays 2 times per day [Active]; Lexapro 10 mg Oral tab 1 tab once daily [Active]; estradiol 1 mg Oral tab 1 tab once daily [Active]; levothyroxine 75 mcg tab 1 tab once daily [Active]; simvastatin 40 mg Oral tab 1 tab once daily [Active]; pantoprazole 40 mg oral TbEC 1 tab once daily [Active]; digoxin 125 mcg Oral tab 1 tab once daily [Active]; buspirone 5 mg Oral tab 1 tab daily [Active]; montelukast 10 mg oral tab 1 tab once daily [Active]; furosemide 20 mg Oral tab 1 tab once daily [Active]; - PMHx: 17:45 Anxiety; Depression; pulmonary fibrosis; rb1 - Immunization history:: Adult Immunizations up to date. - Social history:: Smoking status: Patient/guardian denies using. - Family history:: not pertinent. - Hospitalizations: : No recent hospitalization is reported. ROS: 17:51 Constitutional: Negative for fever, chills, and weight loss, Eyes: Negative for injury, rn pain, redness, and discharge, Neck: Negative for injury, pain, and swelling, Cardiovascular: Negative for chest pain, palpitations, and edema, Respiratory: Negative for shortness of breath, and pleuritic chest pain, Abdomen/GI: Negative for abdominal pain, nausea, vomiting, diarrhea, and constipation, MS/Extremity: Negative for injury and deformity, Skin: Negative for injury, rash, and discoloration, Neuro: Negative for headache, numbness, tingling, and seizure. Exam: 17:51 Constitutional: Thin female, no acute distress Head/Face: Normocephalic, atraumatic. harness worker: dry MM Cardiovascular: Regular rate, irregular rhythm. No pulse deficits. Respiratory: + faint bilateral exp wheezing, no retractions. Abdomen/GI: soft, non-tender MS/ Extremity: Pulses equal, no cyanosis. Neuro: Awake and alert, GCS 15, oriented to person, place, time, and situation. Motor strength 4/5 in all extremities. Sensory grossly intact. 19:42 Abdomen/GI: Inspection: abdomen appears normal, Bowel sounds: normal, Palpation: bao abdomen is soft and non-tender, Rectal exam: is unremarkable, rectal tone normal, Stool: normal, guaiac negative, hemorrhoid(s), are not appreciated, mass, is not appreciated, swelling, is not appreciated, tenderness, is not appreciated, fecal impaction, is not appreciated, Liver: no appreciated palpable abnormalities, Hernia: not appreciated. 19:49 ECG was reviewed by the Attending Physician. bao 19:51 Musculoskeletal/extremity: Exam is negative for DVT Exam: No signs of deep vein bao thrombosis. no pain, no swelling, no tenderness, negative Homans' sign noted on exam, no appreciated bluish discoloration, no erythema, no increased warmth. Vital Signs: 17:45 BP 123 / 43; Pulse 83; Resp 32; Temp 97.9(O); Pulse Ox 98% on 3 lpm NC; Weight 52.16 rb1 kg; Height 5 ft. 2 in. (157.48 cm) (R); Pain 0/10; 18:30 BP 124 / 43; Pulse 82; Resp 34; Pulse Ox 99% on R/A; Pain 0/10; rb1 19:02 BP 122 / 51; Pulse 80; Resp 14; Pulse Ox 98% on 3 lpm NC; Pain 0/10; ls4 20:55 BP 152 / 60; Pulse 84; Resp 22 S; Pulse Ox 98% on 3 lpm NC; jd3 21:11 BP 149 / 51; Pulse 83; Resp 17 S; Pulse Ox 100% on 3 lpm NC; jd3 22:05 BP 138 / 72; Pulse 87; Resp 25 S; Pulse Ox 98% on 3 lpm NC; jd3 22:57 BP 124 / 87; Pulse 91; Resp 25 S; Pulse Ox 97% on 3 lpm NC; jd3 17:45 Body Mass Index 21.03 (52.16 kg, 157.48 cm) rb1 NIH Stroke Scale Scores: 19:51 NIHSS Score: 0 bao MDM: 17:49 Patient medically screened. rn 18:27 ED course: Daughter here, states when stands up, feels like going to fall, starts to rn hyperventilate, then cramps/stiffens, never loses consciousness, then calms down and will go back to normal after sitting or laying down. Daughter states hasn't been eating or drinking much. . 19:33 Differential diagnosis: cardiac arrhythmia, CVA, generalized weakness, GI bleed, bao idiopathic dizziness, near-syncope, syncope, vertigo. 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 Test interpretation: by ED physician or midlevel provider: ECG, plain radiologic studies. Counseling: I had a detailed discussion with the patient and/or guardian regarding: the historical points, exam findings, and any diagnostic results supporting the discharge/admit diagnosis, lab results, radiology results, the need for further work-up and treatment in the hospital. Response to treatment: the patient's symptoms have mildly improved after treatment, patient is well hydrated. 19:38 Data reviewed: vital signs, nurses notes, lab test result(s), EKG, radiologic studies, [facility] CT scan, plain films. 19:43 ED course: admitting pt to dr ch, dyspnea, ext pul fibrosis, anemia, rectal neg, hx bao of anemia, potassium trated, dr ch agrees and accepts. 12/06 17:51 Order name: CPK; Complete Time: 19:29 12/06 17:51 Order name: Basic Metabolic Panel; Complete Time: 19:29 rn 12/06 17:51 Order name: CBC with Diff; Complete Time: 19:29 rn 12/06 17:51 Order name: Hepatic Function; Complete Time: 19:29 rn 12/06 17:51 Order name: Lipase; Complete Time: 19:29 12/06 17:51 Order name: Magnesium; Complete Time: 19:29 12/06 17:51 Order name: Protime (+inr); Complete Time: 19:29 12/06 17:51 Order name: Ptt, Activated; Complete Time: 19:29 12/06 17:51 Order name: Troponin (emerg Dept Use Only); Complete Time: 19:29 rn 12/06 17:51 Order name: Urine Microscopic Only; Complete Time: 19:29 12/06 17:51 Order name: Digoxin; Complete Time: 19:29 12/06 17:51 Order name: BNP; Complete Time: 19:29 12/06 19:33 Order name: Blood Culture Adult (2) [facility] 12/06 19:33 Order name: Influenza Screen (a \T\ B) [facility] 12/06 17:51 Order name: CT Head Brain wo Cont; Complete Time: 19:29 12/06 17:51 Order name: EKG; Complete Time: 17:51 12/06 17:51 Order name: Cardiac monitoring; Complete Time: 18:16 12/06 17:51 Order name: EKG - Nurse/Tech; Complete Time: 18:16 12/06 17:56 Order name: XRAY Chest (1 view); Complete Time: 18:46 12/06 19:33 Order name: COVID-19 [facility] 12/06 19:35 Order name: Type And Screen [facility] 12/06 22:03 Order name: ABO/RH no charge EDOR 12/06 17:51 Order name: IV Saline Lock; Complete Time: 18:16 rn 12/06 17:51 Order name: Labs collected and sent; Complete Time: 18:16 rn 12/06 17:51 Order name: NPO; Complete Time: 18:16 rn 12/06 17:51 Order name: O2 Per Protocol; Complete Time: 18:16 rn 12/06 17:51 Order name: O2 Sat Monitoring; Complete Time: 18:16 rn 12/06 17:51 Order name: Urine Dipstick-Ancillary (obtain specimen); Complete Time: 19:02 rn EC:49 Rate is 86 beats/min. Rhythm is regular. QRS [place] is Normal. NM interval is normal. QRS bao interval is normal. QT interval is normal. No Q waves. T waves are Normal. No ST changes noted. Interpreted by me. Reviewed by me. Administered Medications: 18:25 Drug: NS 0.9% 500 ml Route: IV; Rate: bolus; Site: left forearm; rb1 19:25 Follow up: Response: No adverse reaction; IV Status: Completed infusion; IV Intake: jd3 500ml 19:00 Drug: Xopenex 1.25 mg Route: Inhalation; jd3 20:00 Follow up: Response: No adverse reaction jd3 19:58 Drug: Xopenex 1.25 mg Route: Inhalation; jd3 20:50 Follow up: Response: No adverse reaction jd3 19:58 Drug: AtroVENT Aerosol 0.5 mg Route: Inhalation; jd3 20:50 Follow up: Response: No adverse reaction jd3 19:58 Drug: SOLU-Medrol 125 mg Route: IVP; Site: left antecubital; jd3 20:50 Follow up: Response: No adverse reaction jd3 19:58 Drug: Potassium Effervescent Tablet 25 mEq Route: PO; jd3 20:30 Follow up: Response: No adverse reaction jd3 19:58 Drug: Pepcid 20 mg Route: IVP; Site: left antecubital; jd3 20:50 Follow up: Response: No adverse reaction jd3 20:54 Drug: Zosyn 3.375 grams Route: IVPB; Infused Over: 60 mins; Site: left antecubital; jd3 21:50 Follow up: Response: No adverse reaction; IV Status: Completed infusion; IV Intake: jd3 100ml Disposition: 12/07/19 19:42 Hospitalization ordered by Tuan Ch for Inpatient Admission. Preliminary diagnosis are Syncope and collapse - near, Pulmonary fibrosis, unspecified, Hypoxemia, Iron deficiency anemia, unspecified, Altered mental status, unspecified. - Bed requested for Telemetry/MedSurg (Inpatient). - Status is Inpatient Admission. jd3 - Condition is Fair. - Problem is new. - Symptoms have improved. NIH Stroke Scale - NIH Stroke Score Date: 12/07/2019 Time: 19:51 Total Score = 0 1a. Level of Consciousness (LOC) - 0(Alert) 1b. Level of Consciousness (LOC) (Year \T\ Age) - 0(Both) 1c. LOC Commands (Open \T\ Closes Eyes/Kettle Firer) - 0(Both) 2. Best Gaze (Lateral Gaze Paresis) - 0(Normal) 3. Visual Field Loss - 0(No visual loss) 4. Facial Palsy - 0(Normal) 5a. Left Arm: Motor (10-second hold) - 0(No drift) 5b. Right Arm: Motor (10-second hold) - 0(No drift) 6a. Left Leg: Motor (5-second hold - always test supine) - 0(No drift) 6b. Right Leg: Motor (5-second hold - always test supine) - 0(No drift) 7. Limb Ataxia (finger/nose \T\ heel/knapp - test with eyes open) - 0(Absent) 8. Sensory Loss (pinprick arms/legs/face) - 0(Normal) 9. Best Language: Aphasia (description/naming/reading) - 0(No aphasia) 10. Dysarthria (speech clarity - read or repeat words) - 0(Normal) 11. Extinction and Inattention (visual/tactile/auditory/spatial/personal) - 0(No abnormality) Initials: bao Signatures: Dispatcher [employer] EDMS Omer Mcmanus MD MD cha Nieto, Roman, MD MD rn Garcia, Cindy, RN RN cg Barber, Rebecca, RN RN rb1 Davies, Jonathon, RN RN jd3 Corrections: (The following items were deleted from the chart) 21:58 19:42 Hospitalization Ordered by Tuan Ch for Inpatient Admission. shanique Preliminary diagnosis is Syncope and collapse - near; Pulmonary fibrosis, unspecified; Hypoxemia; Iron deficiency anemia, unspecified; Altered mental status, unspecified. Bed requested for Telemetry/MedSurg (Inpatient). Status is Inpatient Admission. Condition is Fair. Problem is new. Symptoms have improved. [facility] 23:01 21:58 12/07/2019 19:42 Hospitalization Ordered by Tuan Ch for Inpatient jd3 Admission. Preliminary diagnosis is Syncope and collapse - near; Pulmonary fibrosis, unspecified; Hypoxemia; Iron deficiency anemia, unspecified; Altered mental status, unspecified. Bed requested for Telemetry/MedSurg (Inpatient). Status is Inpatient Admission. Condition is Fair. Problem is new. Symptoms have improved. cg
--- NOTE | 2019-12-07 19:43 | ER ---
Nurse's Notes [facility] Name: Moon Bazzi Age: 84 yrs Sex: Female : 1935 Arrival Date: 12/07/2019 Time: 17:49 Bed 6 Private MD: Diagnosis: Syncope and collapse-near;Pulmonary fibrosis, unspecified;Hypoxemia;Iron deficiency anemia, unspecified;Altered mental status, unspecified Presentation: 12/06 17:45 Chief complaint: EMS states: Pt. is A \T\ O x 4 with intermittent confusion. She was at [facility] home, told her family that she felt dizzy and became stiff and the family lowered her to the floor. They are not sure if she had a seizure. History of dementia and pacemaker. Wears O2 3 L at home. When EMS arrived she was 92% on 3 L and still on the floor. Vital signs are stable, BGL 159. 20 G L FA. Coronavirus screen: Proceed with normal triage. Ebola Screen: Patient denies travel to an Ebola-affected area in the 21 days before illness onset. Initial Sepsis Screen: Does the patient meet any 2 criteria? No. Patient's initial sepsis screen is negative. Does the patient have a suspected source of infection? No. Patient's initial sepsis screen is negative. Risk Assessment: Do you want to hurt yourself or someone else? Patient reports no desire to harm self or others. Onset of symptoms was December 06, 2019. 17:45 Method Of Arrival: EMS: [facility] 17:45 Acuity: PEDRITO 3 rb1 Triage Assessment: 17:45 General: Appears in no apparent distress. comfortable, Behavior is calm, cooperative, rb1 Denies fever. Pain: Denies pain. Neuro: Level of Consciousness is awake, alert, obeys commands, Oriented to person, place, time, situation, Has intermittent confusion per EMS and family report.. Cardiovascular: Capillary refill < 3 seconds. Respiratory: Reports shortness of breath Airway is patent Respiratory effort is even, unlabored, Respiratory pattern is regular, symmetrical. GI: No signs and/or symptoms were reported involving the gastrointestinal system. : No signs and/or symptoms were reported regarding the genitourinary system. Derm: Skin is pink, warm \T\ dry. Musculoskeletal: Range of motion: intact in all extremities. Historical: - Allergies: 17:45 Meperidine; rb1 - Home Meds: 17:45 Esbriet oral 801 mg oral 3 times per day [Active]; Eliquis 5 mg oral tab 1 tab 2 times rb1 per day [Active]; carvedilol 6.25 mg oral tab 1 tab 2 times per day [Active]; duloxetine 30 mg oral cpDR 1 cap 2 times per day [Active]; ipratropium bromide inhalation inhalation [Active]; fluticasone inhalation inhalation [Active]; fluticasone 50 mcg/actuation nasal spsn 2 sprays 2 times per day [Active]; Lexapro 10 mg Oral tab 1 tab once daily [Active]; estradiol 1 mg Oral tab 1 tab once daily [Active]; levothyroxine 75 mcg tab 1 tab once daily [Active]; simvastatin 40 mg Oral tab 1 tab once daily [Active]; pantoprazole 40 mg oral TbEC 1 tab once daily [Active]; digoxin 125 mcg Oral tab 1 tab once daily [Active]; buspirone 5 mg Oral tab 1 tab daily [Active]; montelukast 10 mg oral tab 1 tab once daily [Active]; furosemide 20 mg Oral tab 1 tab once daily [Active]; - PMHx: 17:45 Anxiety; Depression; pulmonary fibrosis; rb1 - Immunization history:: Adult Immunizations up to date. - Social history:: Smoking status: Patient/guardian denies using. - Family history:: not pertinent. - Hospitalizations: : No recent hospitalization is reported. Screenin:45 Abuse screen: Denies threats or abuse. Nutritional screening: No deficits noted. rb1 Tuberculosis screening: No symptoms or risk factors identified. Fall Risk Fall in past 12 months (25 points). Secondary diagnosis (15 points) dementia, IV access (20 points). Ambulatory Aid- None/Bed Rest/Nurse Assist (0 pts). Gait- Normal/Bed Rest/Wheelchair (0 pts) Mental Status- Overestimates/Forgets Limitations (15 pts.). Total [place] Fall Scale indicates High Risk Score (45 or more points). Fall prevention measures have been instituted. Side Rails Up X 2 Placed Close to Nursing Station 1:1 Attendant Assigned Frequent Obs/Assessments Occuring Family Present and informed to notify staff if the need to leave the bedside As available patient and family educated on Fall Prevention Program and Strategies. Assessment: 17:45 General: See triage assessment. rb1 18:45 Reassessment: Patient appears in no apparent distress at this time. Patient and/or rb1 family updated on plan of care and expected duration. Pain level reassessed. Patient is alert, oriented x 3, equal unlabored respirations, skin warm/dry/pink. Patient denies pain at this time. 19:45 General: Appears in no apparent distress. uncomfortable, Behavior is calm, cooperative, jd3 appropriate for age. Pain: Denies pain. Neuro: Level of Consciousness is awake, alert, obeys commands, Oriented to person, place, time, situation, Reports dizziness. Cardiovascular: Heart tones S1 S2 present Capillary refill < 3 seconds Patient's skin is warm and dry. Rhythm is ventricular pacer. Respiratory: Airway is patent Respiratory effort is unlabored, shallow, Respiratory pattern is symmetrical, tachypnea Breath sounds are clear bilaterally. GI: Abdomen is round non-distended, Patient currently denies constipation, diarrhea, nausea, vomiting. : No signs and/or symptoms were reported regarding the genitourinary system. EENT: No signs and/or symptoms were reported regarding the EENT system. Derm: Skin is intact, Skin is dry, Skin is pale, Skin temperature is warm. Musculoskeletal: Circulation, motion, and sensation intact. Range of motion: intact in all extremities. 20:30 Reassessment: No changes from previously documented assessment. Patient and/or family jd3 updated on plan of care and expected duration. Pain level reassessed. Patient is alert, oriented x 3, equal unlabored respirations, skin warm/dry/pink. 21:11 Reassessment: No changes from previously documented assessment. Patient and/or family jd3 updated on plan of care and expected duration. Pain level reassessed. Patient is alert, oriented x 3, equal unlabored respirations, skin warm/dry/pink. awaiting admission. 22:05 Reassessment: Patient appears in no apparent distress at this time. Patient and/or jd3 family updated on plan of care and expected duration. Pain level reassessed. Patient is alert, oriented x 3, equal unlabored respirations, skin warm/dry/pink. report attempt called, nurse busy, was told they will call back. Pain: Denies pain. Neuro: Level of Consciousness is awake, alert, obeys commands, Oriented to person, place, time, situation. Cardiovascular: Capillary refill < 3 seconds Patient's skin is warm and dry. Respiratory: Airway is patent Respiratory effort is unlabored, shallow, Respiratory pattern is symmetrical, tachypnea Breath sounds are clear bilaterally. GI: No signs and/or symptoms were reported involving the gastrointestinal system. 22:58 Reassessment: Patient and/or family updated on plan of care and expected duration. Pain jd3 level reassessed. Patient is alert, oriented x 3, equal unlabored respirations, skin warm/dry/pink. pt assisted to room 416 via bed with [employer]. Vital Signs: 17:45 BP 123 / 43; Pulse 83; Resp 32; Temp 97.9(O); Pulse Ox 98% on 3 lpm NC; Weight 52.16 rb1 kg; Height 5 ft. 2 in. (157.48 cm) (R); Pain 0/10; 18:30 BP 124 / 43; Pulse 82; Resp 34; Pulse Ox 99% on R/A; Pain 0/10; rb1 19:02 BP 122 / 51; Pulse 80; Resp 14; Pulse Ox 98% on 3 lpm NC; Pain 0/10; ls4 20:55 BP 152 / 60; Pulse 84; Resp 22 S; Pulse Ox 98% on 3 lpm NC; jd3 21:11 BP 149 / 51; Pulse 83; Resp 17 S; Pulse Ox 100% on 3 lpm NC; jd3 22:05 BP 138 / 72; Pulse 87; Resp 25 S; Pulse Ox 98% on 3 lpm NC; jd3 22:57 BP 124 / 87; Pulse 91; Resp 25 S; Pulse Ox 97% on 3 lpm NC; jd3 17:45 Body Mass Index 21.03 (52.16 kg, 157.48 cm) rb1 NIH Stroke Scale Scores: 19:51 NIHSS Score: 0 bao ED Course: 17:45 Arm band placed on right wrist. rb1 17:45 Patient has correct armband on for positive identification. Bed in low position. Call rb1 light in reach. Side rails up X2. monitoring analyst on. Pulse ox on. NIBP on. Warm blanket given. 17:45 Maintain EMS IV. Dressing intact. Good blood return noted. Site clean \T\ dry. Gauge \T\ rb 1 site: 20 G L FA. 17:49 Patient arrived in ED. rn 17:49 Wenceslao Houser MD is Attending Physician. rn 17:58 Evelina Cantu, SHEYLA is Primary Nurse. rb1 18:09 Triage completed. rb1 18:24 XRAY Chest (1 view) In Process Unspecified. EDMS 18:43 CT Head Brain wo Cont In Process Unspecified. EDMS 19:06 Attending Physician role handed off by Wenceslao Houser MD bao 19:06 Omer Mcmanus MD is Attending Physician. bao 19:41 Tuan Ch is Hospitalizing Provider. bao 22:13 No provider procedures requiring assistance completed. Patient admitted, IV remains in jd3 place. Administered Medications: 18:25 Drug: NS 0.9% 500 ml Route: IV; Rate: bolus; Site: left forearm; rb1 19:25 Follow up: Response: No adverse reaction; IV Status: Completed infusion; IV Intake: jd3 500ml 19:00 Drug: Xopenex 1.25 mg Route: Inhalation; jd3 20:00 Follow up: Response: No adverse reaction jd3 19:58 Drug: Xopenex 1.25 mg Route: Inhalation; jd3 20:50 Follow up: Response: No adverse reaction jd3 19:58 Drug: AtroVENT Aerosol 0.5 mg Route: Inhalation; jd3 20:50 Follow up: Response: No adverse reaction jd3 19:58 Drug: SOLU-Medrol 125 mg Route: IVP; Site: left antecubital; jd3 20:50 Follow up: Response: No adverse reaction jd3 19:58 Drug: Potassium Effervescent Tablet 25 mEq Route: PO; jd3 20:30 Follow up: Response: No adverse reaction jd3 19:58 Drug: Pepcid 20 mg Route: IVP; Site: left antecubital; jd3 20:50 Follow up: Response: No adverse reaction jd3 20:54 Drug: Zosyn 3.375 grams Route: IVPB; Infused Over: 60 mins; Site: left antecubital; jd3 21:50 Follow up: Response: No adverse reaction; IV Status: Completed infusion; IV Intake: jd3 100ml Intake: 19:25 IV: 500ml; Total: 500ml. jd3 21:50 IV: 100ml; Total: 600ml. jd3 Outcome: 19:42 Decision to Hospitalize by Provider. bao 22:41 Condition: stable lp1 22:41 Instructed on the need for admit. 23:00 Admitted to Med/surg accompanied by tech, room 416, with oxygen, with chart, Report adilene called to Deshaun RN 23:01 Patient left the ED. adilene NIH Stroke Scale - NIH Stroke Score Date: 12/07/2019 Time: 19:51 Total Score = 0 1a. Level of Consciousness (LOC) - 0(Alert) 1b. Level of Consciousness (LOC) (Year \T\ Age) - 0(Both) 1c. LOC Commands (Open \T\ Closes Eyes/Larry Operator) - 0(Both) 2. Best Gaze (Lateral Gaze Paresis) - 0(Normal) 3. Visual Field Loss - 0(No visual loss) 4. Facial Palsy - 0(Normal) 5a. Left Arm: Motor (10-second hold) - 0(No drift) 5b. Right Arm: Motor (10-second hold) - 0(No drift) 6a. Left Leg: Motor (5-second hold - always test supine) - 0(No drift) 6b. Right Leg: Motor (5-second hold - always test supine) - 0(No drift) 7. Limb Ataxia (finger/nose \T\ heel/knapp - test with eyes open) - 0(Absent) 8. Sensory Loss (pinprick arms/legs/face) - 0(Normal) 9. Best Language: Aphasia (description/naming/reading) - 0(No aphasia) 10. Dysarthria (speech clarity - read or repeat words) - 0(Normal) 11. Extinction and Inattention (visual/tactile/auditory/spatial/personal) - 0(No abnormality) Initials: bao Signatures: Dispatcher [employer] EDMA Omer Mcmanus MD MD cha Nieto, Roman, MD MD rn Pena, Laura, RN RN lp1 Evelina Cantu RN RN rb1 Elías Ko RN RN jd3 Katherine Yu RN RN ls4 Corrections: (The following items were deleted from the chart) 22:13 22:05 Reassessment: Patient appears in no apparent distress at this time. jd3 Patient and/or family updated on plan of care and expected duration. Pain level reassessed. Patient is alert, oriented x 3, equal unlabored respirations, skin warm/dry/pink. jd3 22:13 22:05 BP 138 / 44; Pulse 87bpm; Resp 25bpm; Spontaneous; Pulse Ox 98% 3 lpm jd3 Nasal Cannula; jd3 22:58 22:58 Reassessment: Patient and/or family updated on plan of care and expected jd3 duration. Pain level reassessed. Patient is alert, oriented x 3, equal unlabored respirations, skin warm/dry/pink. pt assisted to room 416 via bed with [facility] tech jd3
[2019-12-07] MEDS ORDERED: PIPER/TAZO/NS 3.375gm 3.375 GM/100 ML BAG ONE (19:44)
[2019-12-07] MEDS ORDERED: FAMOTIDINE 20 MG/2 ML VIAL IV ONE (19:47)
--- NOTE | 2019-12-07 21:40 | P.HP ---
Certification for Inpatient Patient admitted to: Inpatient With expected LOS: >2 Midnights Practitioner: I am a practitioner with admitting privileges, knowledge of patient current condition, hospital course, and medical plan of care. Services: Services provided to patient in accordance with Admission requirements found in Title 42 Section 412.3 of the Code of Federal Regulations Patient History Date of Service: 12/07/19 Reason for admission: Generalized weakness History of Present Illness: 84-year-old woman with a history of advanced pulmonary fibrosis, chronic respiratory failure on 3-4 L oxygen by nasal cannula was brought to the emergency department due to sudden onset of generalized weakness, and rigidity. According to the daughter, patient has been progressively weak. She experienced rigidity in her limbs and could not move and they had to lay her on the floor. According to the daughter her oxygen saturation was 90% during the episode. She recently saw her juice packaging machines setter who prescribed antibiotics and tapering dose oral steroids for worsening shortness of breath. She had tapered the prednisone from 40 mg daily to 10 mg daily. Blood work in the ED is significant for anemia with hemoglobin of 7.8. Her hemoglobin 1 month ago was 9.0. Patient could have developed seizures from hypoxia. She also may be experiencing generalized weakness because of the anemia. She is hospitalized for further management. Allergies meperidine [From Demerol] Allergy (Verified 11/08/19 04:52) Anaphylaxis Home Medications: Advair 500/50 1 puff IH BID 11/08/19 Apixaban [Eliquis] 1 tab PO BID 11/08/19 Cyanocobalamin (Vitamin B-12) [Vitamin B-12] 1 tab PO DAILY 11/08/19 Digoxin [Lanoxin*] 1 tab PO DAILY 11/08/19 Duloxetine HCl 1 cap PO BID 11/08/19 Escitalopram [Lexapro*] 1 tab PO DAILY 11/08/19 Estradiol [Estrace] 1 tab PO DAILY 11/08/19 Furosemide [Lasix] 20 mg PO DAILY PRN #30 tab 11/08/19 Levothyroxine [Synthroid*] 1 tab PO DAILY 11/08/19 Pantoprazole [Protonix Tab*] 1 tab PO DAILY 11/08/19 Pirfenidone [Esbriet] 1 tab PO TID 11/08/19 Simvastatin 1 tab PO DAILY 11/08/19 carvediloL [Carvedilol] 1 tab PO BID 11/08/19 - Past Medical/Surgical History Diabetic: No -: Pulmonary fibrosis -: Hypertension -: Hypothyroid -: Chronic O2 use -: Atrial fibrillation -: Chronic anti coagulated -: Status post AICD placed -: Status post AICD placement -: hysterectomy -: bilateral hip replacement -: bladder sx -: ankle sx -: knee surgery - Family History Mother -: Heart disease Father -: Heart disease Brother -: Heart disease - Social History Alcohol use: No CD- Drugs: No Caffeine use: No Review of Systems Other: Except as documented, all other systems reviewed and negative. Physical Examination - Physical Exam General: Alert, In no apparent distress, Oriented x3 HEENT: Mucous membr. moist/pink, Sclerae nonicteric Neck: Supple, JVD not distended Respiratory: Diminished, Crackles/rales (Bilateral) Cardiovascular: No edema, Regular rate/rhythm, Normal S1 S2 Capillary refill: <2 Seconds Gastrointestinal: Normal bowel sounds, Soft and benign, Non-distended, No ten derness Musculoskeletal: No erythema Integumentary: No rashes, No erythema Neurological: Normal speech, Normal strength at 5/5 x4 extr - Studies Laboratory Data (last 24 hrs) 12/07/19 18:26: PT 21.0 H, INR 1.80, APTT 30.5 12/07/19 18:26: WBC 18.8 H, Hgb 7.8 L*, Hct 24.7 L, Plt Count 564 H 12/07/19 18:26: Sodium 140, Potassium 3.3 L, BUN 18, Creatinine 0.76, Glucose 106, Magnesium 2.3, Total Bilirubin 0.2, AST 16, ALT 21, Alkaline Phosphatase 76, Lipase 123 Microbiology Data (last 24 hrs): 12/07/19 20:29 Nasopharnyx Influenza Type A Antigen Screen - Final 12/07/19 20:29 Nasopharnyx Influenza Type B Antigen Screen - Final 12/07/19 20:29 Nasopharnyx Coronavirus COVID-19 PCR - Final Assessment and Plan - Problems (Diagnosis) (1) Generalized weakness Current Visit: Yes Status: Acute (2) Anemia Current Visit: Yes Status: Acute (3) Pulmonary fibrosis Current Visit: No Status: Acute (4) Chronic respiratory failure with hypoxia Current Visit: Yes Status: Acute (5) Chronic diastolic heart failure Current Visit: Yes Status: Acute (6) Atrial fibrillation Current Visit: No Status: Acute - Plan Admit patient to the medical floor. Titrate oxygen. Avoid hypoxia. Bronchodilators. Oral prednisone 40 mg daily. Transfuse 1 unit PRBC for target hemoglobin greater than 8. Continue home dose oral lasix Hold Eliquis given drop in hemoglobin Check stool for occult blood given anemia. Monitor for seizures. Outpatient EEG. - Advance Directives Does patient have a Living Will: Yes Does patient have a Durable POA for Healthcare: Yes
[2019-12-07] MEDS ORDERED: ACETAMINOPHEN 500 MG TAB PO PRN (22:46)
[2019-12-07] MEDS ORDERED: NA CHLORIDE 0.9% 250 ML IV SCH (22:46)
[2019-12-07] MEDS ORDERED: ONDANSETRON 4 MG/2 ML VIAL IV PRN (22:46)
[2019-12-08 00:33] VITALS: BMI 21.0
[2019-12-08] MEDS: ALBUTEROL 2.5 MG/3 ML NEB SOL NEB SCH ×2 (02:00→08:30)
[2019-12-08] MEDS: IPRATROPIUM BROM 0.5MG/2.5ML NEB SCH ×2 (02:00→08:30)
[2019-12-08 08:21] LABS: Absolute Lymphocytes (CBC) 0.5 K/uL (0.7-4.9); Basophils % 0.1 % (0-1.3); Hematocrit 28.6 % (36.0-45.0); Lymphocytes % 3.1 % (15.3-44.8); MPV 6.9 fL (7.6-11.3); RBC Red Blood Cell Count 3.61 M/uL (3.86-4.86)
[2019-12-08 08:41] LABS: Magnesium 2.4 mg/dL (1.8-2.4); Phosphorus 2.6 mg/dL (2.5-4.9); Potassium 4.2 mmol/L (3.5-5.1); Thyroid Stimulating Hormone 0.519 uIU/mL (0.360-3.740)
[2019-12-08] MEDS ORDERED: predniSONE 20 MG TAB PO SCH (09:00)
[2019-12-08 09:23] VITALS: BP 163/78; TEMP 98.8
[2019-12-08 09:24] VITALS: O2SAT 94
[2019-12-08 09:55] LABS: Anisocytosis 1+; Blood Morphology Comment NOTED (NOT SEEN); Platelet Estimate ADEQ; Toxic Granulation 1+; Urine White Blood Cell Casts OK
--- NOTE | 2019-12-08 19:22 | DS ---
Date of Discharge: 12/08/2019 Discharge Diagnoses: 1.Generalized weakness, resolved. 2.Anemia status post PRBC transfusion. 3.Pulmonary fibrosis, chronic. 4.Chronic respiratory failure with hypoxia, stable on O2. 5.Chronic diastolic heart failure. 6.Atrial fibrillation, paroxysmal. 7.Hypokalemia, corrected. Hospital Course: Patient is an 84-year-old female with advanced pulmonary fibrosis, chronic respirat ory failure, on 3-4 L of oxygen via nasal cannula, who came in with generalized weakness, rigidity. Patient has been getting progressively weak. Patient was recently placed on antibiotics and tapering dose of steroids by her kindergarten classroom teacher. She was found to have some anemia with hemoglobin of 7.8, a drop from her baseline of 9. It is possible she may be experiencing weakness because of the anemia. Patient was admitted. She was transfused a unit of blood. Patient overall felt significantly krystle r. She was back to her baseline. She was on about 3 L of oxygen, which is around her baseline as we ll. Patient was wanting to leave. She does have some leukocytosis related to steroid use. Her pota ssium improved to 4.2 and was corrected. Patient was cautioned regarding use of her Eliquis. She ne eds to follow up with her scaling machine operator and to determine continued use of Eliquis in the setting of an emia. Her chest x-ray showed pulmonary fibrosis. She did not have any seizure-type episodes in the hospital. She would benefit from neurology evaluation and EEG as an outpatient. Head CT scan was al so negative. Patient also need to follow up with her kindergarten classroom teacher in [place]. Her COVID testing wa s negative. Patient will also need to follow up with GI in 2 weeks to further workup her anemia. Sh e is to return to ER for worsening condition. Diet: Low-sodium, free-fluid restricted diet. Activity: Fall precautions. Medications: As per medication reconciliation list. Physical Examination: General: Awake, alert, oriented x3, not in any acute distress. CV: S1, S2. Respiratory: Moving air well bilaterally. Slightly diminished breath sounds. No use of accessory m uscles. Abdomen: Soft, nontender, nondistended. Positive bowel sounds. Extremities: No clubbing, cyanosis, edema. Neurologic: Nonfocal. SA/MODL Voice ID: [id number] Report ID: [id number]
--- NOTE | 2019-12-09 10:54 | EKG ---
Test Date: 2019-12-07 Test Time: 19:50:37 Blender Conveyor Operator: SLYT MEASUREMENT RESULTS: Intervals: Rate: 86 [place]: 102 QRSD: 104 QT: 368 QTc: 440 [place]: P: 88 [place]: 102 QRS: -12 T: 96 INTERPRETIVE STATEMENTS: Electronic ventricular pacemaker Compared to ECG 11/07/2019 22:33:35 No significant changes Electronically Signed On 12-09-19 10:49:29 CDT by Miguel Dow
== END 2019-12-08 10:40 | disposition home or self-care (01) ==
LOC: ER 17:43 → ERHOLD 21:48 → INTOOBSV 21:48 → 4TH 22:50
PROVIDERS: ADMIT Internal Medicine; ATTEND Family Medicine
DX: R53.1 Weakness (principal); D64.9 Anemia, unspecified; Z20.828 Contact with and (suspected) exposure to other viral communicable diseases; J96.11 Chronic respiratory failure with hypoxia; Z99.81 Dependence on supplemental oxygen; J84.10 Pulmonary fibrosis, unspecified; I48.0 Paroxysmal atrial fibrillation; I11.0 Hypertensive heart disease with heart failure; I50.32 Chronic diastolic (congestive) heart failure; E03.9 Hypothyroidism, unspecified; D72.829 Elevated white blood cell count, unspecified; E87.6 Hypokalemia; Z88.6 Allergy status to analgesic agent; Z95.810 Presence of automatic (implantable) cardiac defibrillator; Z79.01 Long term (current) use of anticoagulants; Z82.49 Family history of ischemic heart disease and other diseases of the circulatory system
CPT/HCPCS: 96365; 96361; 36430; 93005; 87040 ×2; 85025 ×2; 80048 ×2; 36415; 86900; 83735 ×2; 86850; 82550; 84100; 85610; 80162; 86901; 80076; 85730; 84443; 81015; 84484; 83690; 83880; 87804 ×2; 70450; 71045; 94640; 94760 ×2; 96375; 99285; U0002; J2543; G0378 ×2; P9016; J7030; J7040; J2930; J7512